=== PATIENT | female | born 1960 | race Caucasian/White ===

== ENCOUNTER 2021-03-28 14:04 | Observation (INO) | payer BC ==
[2021-03-28] MEDS ORDERED: Sodium Chloride 0.9% 1000 ML 1,000 ML IV SCH (14:30)
--- NOTE | 2021-03-28 14:37 | ERPHSYRPT ---
- History of Present Illness Time Seen by Provider: 03/28/21 14:10 Historian: patient Exam Limitations: no limitations Patient Subjective Stated Complaint: Pt states "I felt a little bloated last night but after I ate breakfast I started to vomit and my stomach really started to hurt." Triage Nursing Assessment: Pt presented alert and oriented X 3, skin pwd. Pt able to speak in clear full sentences pt in no apparent respiratory distress. PT resting on the bed. Physician History: Patient is a 60-year-old female presents to our ED via EMS for evaluation of epigastric pain. Symptoms started last night. Patient states she felt bloated. Patient awoke this morning had breakfast and vomited. Patient's pain rated 8 o ut of 10. Patient received Zofran and fentanyl in route. Patient's pain improved to 4 out of 10. Patient declined additional pain medication at this time. Patient has a history of reflux. Her gallbladder still intact. Symptoms are mild to moderate in intensity. No specific worsening improving factors. Patient denies a history of the same. Patient states he is otherwise healthy. History of breast cancer and is now a survivor. Patient voices no other complaints concerns at this time. Timing/Duration: yesterday Activities at Onset: none Quality: aching Abdominal Pain Onset Location: epigastric Pain Radiation: no radiation Severity of Pain-Max: moderate Severity of Pain-Current: mild Modifying Factors: Improves With: palpation Associated Symptoms: nausea, vomiting, No chest pain, No fever/chills, No heartburn Previous symptoms: no prior history Allergies/Adverse Reactions: clarithromycin [From Biaxin] Allergy (Intermediate, Verified 03/28/21 14:15) rash and joint pain Home Medications: Apremilast [Otezla] 30 mg PO DAILY 03/28/21 [History] Citalopram Hydrobromide [Citalopram HBr] 10 mg PO DAILY 03/28/21 [History] Omeprazole 40 mg PO DAILY 03/28/21 [History] Pravastatin Sodium 80 mg PO DAILY 03/28/21 [History] Trazodone HCl 50 mg [Desyrel 50 mg] 50 mg PO DAILY 03/28/21 [History] Hx Tetanus, Diphtheria Vaccination/Date Given: No Hx Influenza Vaccination/Date Given: Yes Hx Pneumococcal Vaccination/Date Given: No Immunizations Up to Date: Yes Travel Risk - International Travel Have you traveled outside of the country in past 3 weeks: No - Coronavirus Screening Are you exhibiting any of the following symptoms?: No Close contact with a COVID-19 positive Pt in past 14-21 Days: No - Vaccine Status Have you recieved a Covid-19 vaccination: Yes Facility Environmental Technician: Pfizer - Vaccination Dates Date of 2cond Vaccination (if applicable): 05/2020 - Review of Systems Constitutional: No Symptoms, No Fever, No Chills Eyes: No Symptoms Ears, Nose, & Throat: No Symptoms Respiratory: No Symptoms, No Cough, No Dyspnea Cardiac: No Symptoms, No Chest Pain, No Edema, No Syncope Abdominal/Gastrointestinal: No Symptoms, No Abdominal Pain, No Nausea, No Vomiting, No Diarrhea Genitourinary Symptoms: No Symptoms, No Dysuria Musculoskeletal: No Symptoms, No Back Pain, No Neck Pain Skin: No Symptoms, No Rash Neurological: No Symptoms, No Dizziness, No Focal Weakness, No Sensory Changes Psychological: No Symptoms Endocrine: No Symptoms Hematologic/Lymphatic: No Symptoms Immunological/Allergic: No Symptoms All Other Systems: Reviewed and Negative - Past Medical History Pertinent Past Medical History: Yes Neurological History: No Pertinent History, Epilepsy Cardiac History: High Cholesterol Respiratory History: No Pertinent History Endocrine Medical History: No Pertinent History Musculoskeletal History: Arthritis GI Medical History: GERD History: No Pertinent History Psycho-Social History: Anxiety, Depression Female Reproductive Disorders: No Pertinent History - Past Surgical History Past Surgical History: Yes Other Surgical History: massectomy right side - Social History Smoking Status: Former smoker Exposure to second hand smoke: Yes Drug Use: none Patient Lives Alone: Yes - Female History Hx Now: No - Nursing Vital Signs Nursing Vital Signs: Initial Vital Signs Temperature 97.4 F 03/28/21 14:06 Pulse Rate 58 L 03/28/21 14:06 Respiratory Rate 20 03/28/21 14:06 Blood Pressure 159/92 03/28/21 14:06 O2 Sat by Pulse Oximetry 98 03/28/21 14:06 Pain Scale Pain Intensity 4 - Physical Exam General Appearance: no apparent distress, alert Eye Exam: PERRL/EOMI, eyes nml inspection Ears, Nose, Throat Exam: normal ENT inspection, pharynx normal, moist mucous membranes Neck Exam: normal inspection, non-tender, supple, full range of motion Respiratory Exam: normal breath sounds, lungs clear, airway intact, No respiratory distress Cardiovascular Exam: regular rate/rhythm, normal heart sounds, normal peripheral pulses Gastrointestinal/Abdomen Exam: soft, normal bowel sounds, tenderness (Epigastric tenderness to palpation.), No mass, No guarding Pelvic Exam: not done Rectal Exam: not done Back Exam: normal inspection, normal range of motion, No CVA tenderness, No vertebral tenderness Extremity Exam: normal inspection, normal range of motion, pelvis stable Neurologic Exam: alert, oriented x 3, cooperative, normal mood/affect, sensation nml, No motor deficits Skin Exam: normal color, warm, dry Lymphatic Exam: No adenopathy SpO2 Interpretation: normal SpO2: 98 O2 Delivery: Room Air - Course Nursing assessment & vital signs reviewed: Yes EKG Interpreted by Me: RATE (64), Sinus Rhythm, NORMAL AXIS, NORMAL INTERVALS Ordered Tests: Active Orders 24 hr Category Date Time Status EKG-ER Only STAT Care 03/28/21 14:26 Active IV Insertion STAT Care 03/28/21 14:26 Active ABDOMEN AND PELVIS W CONTRAST [CT] Stat Exams 03/28/21 14:26 Completed NG TUBE PLACEMENT (RAD) Stat Exams 03/28/21 Taken CBC W DIFF Stat Lab 03/28/21 15:00 Completed CMP Stat Lab 03/28/21 15:00 Completed LIPASE Stat Lab 03/28/21 15:00 Completed Lactic Acid Stat Lab 03/28/21 17:00 Completed UA W/RFX UR CULTURE Stat Lab 03/28/21 15:15 Completed Transfer Order Routine Transfer 03/28/21 Ordered Medication Summary Generic Name Dose Route Start Last Admin Trade Name Freq PRN Reason Stop Dose Admin Sodium Chloride 1,000 mls @ 100 mls/hr 03/28/21 14:30 03/28/21 14:58 Sodium Chloride 0.9% 1000 Ml IV 04/27/21 14:29 100 mls/hr .Q10H NIKKI Administration Discontinued Medications Generic Name Dose Route Start Last Admin Trade Name Freq PRN Reason Stop Dose Admin Fentanyl Citrate 100 mcg 03/28/21 14:55 03/28/21 14:58 Fentanyl Citrate 100 Mcg/2 Ml* Vial IV 03/28/21 14:56 100 mcg STAT ONE Administration Fentanyl Citrate Confirm 03/28/21 14:57 Fentanyl Citrate 100 Mcg/2 Ml* Vial Administered 03/28/21 14:58 Dose 100 mcg .ROUTE .STK-MED ONE Piperacillin Sod/Tazobactam 100 mls @ 200 mls/hr 03/28/21 16:48 Sod 3.375 gm/ Sodium Chloride IV 03/28/21 17:17 STAT ONE Sodium Chloride Confirm 03/28/21 18:12 Sodium Chloride 100ml Mini-Bag Plus Administered 03/28/21 18:13 Dose 100 mls @ ud IV .STK-MED ONE Ondansetron HCl 4 mg 03/28/21 14:55 03/28/21 14:58 Ondansetron Hcl 4 Mg/2 Ml Vial IV 03/28/21 14:56 4 mg STAT ONE Administration Ondansetron HCl Confirm 03/28/21 14:57 Ondansetron Hcl 4 Mg/2 Ml Vial Administered 03/28/21 14:58 Dose 4 mg .ROUTE .STK-MED ONE Piperacillin Sod/Tazobactam Sod Confirm 03/28/21 18:12 Piperacillin/Tazobactam Sodium 3.375 Gm Vial Administered 03/28/21 18:13 Dose 3.375 gm IV .STK-MED ONE Lab/Rad Data: Laboratory Result Diagrams 03/28/21 15:00 03/28/21 15:00 Laboratory Results 03/28/21 03/28/21 03/28/21 Range/Units 17:00 16:52 15:15 WBC (4.0-10.5) K/mm3 RBC (4.1-5.4) M/mm3 Hgb (12.0-16.0) gm/dl Hct (35-47) % MCV (78-100) fl MCH (26-32) pg MCHC (32-36) g/dl RDW (11.5-14.0) % Plt Count (150-450) K/mm3 MPV (7.5-11.0) fl Gran % (36.0-66.0) % Eos # (Auto) (0-0.5) Absolute Lymphs (auto) (1.0-4.6) Absolute Monos (auto) (0.0-1.3) Lymphocytes % (24.0-44.0) % Monocytes % (0.0-12.0) % Eosinophils % (0.00-5.0) % Basophils % (0.0-0.4) % Absolute Granulocytes (1.4-6.9) Basophils # (0-0.4) Sodium (137-145) mmol/L Potassium (3.5-5.1) mmol/L Chloride (98-107) mmol/L Carbon Dioxide (22-30) mmol/L Anion Gap (5-15) MEQ/L BUN (7-17) mg/dL Creatinine (0.52-1.04) mg/dL Estimated GFR ML/MIN Glucose (74-106) mg/dL Lactic Acid 0.9 (0.4-2.0) Calcium (8.4-10.2) mg/dL Total Bilirubin (0.2-1.3) mg/dL AST (14-36) U/L ALT (0-35) U/L Alkaline Phosphatase (38-126) U/L Serum Total Protein (6.3-8.2) g/dL Albumin (3.5-5.0) g/dL Lipase (23-300) U/L Urine Color YELLOW (YELLOW) Urine Appearance SLIGHTLY CLOUDY (CLEAR) Urine pH 9.0 (5-6) Ur Specific [place] 1.033 (1.005-1.025) Urine Protein 30 (Negative) Urine Ketones SMALL (NEGATIVE) Urine Blood NEGATIVE (0-5) Shyam/ul Urine Nitrite NEGATIVE (NEGATIVE) Urine Bilirubin NEGATIVE (NEGATIVE) Urine Urobilinogen NEGATIVE (0-1) mg/dL Ur Leukocyte Esterase NEGATIVE (NEGATIVE) Urine WBC (Auto) 3-5 (0-5) /HPF Urine RBC (Auto) 6-10 (0-2) /HPF U Epithel Cells (Auto) RARE (FEW) /HPF Urine Bacteria (Auto) RARE (NEGATIVE) /HPF Urine Culture Reflexed NO (NO) Urine Glucose NEGATIVE (NEGATIVE) mg/dL Influenza Type A Ag NEGATIVE (NEGATIVE) Influenza Type B Ag NEGATIVE (NEGATIVE) RSV (PCR) NEGATIVE (Negative) SARS-CoV-2 (PCR) NEGATIVE (NEGATIVE) 03/28/21 03/28/21 Range/Units 15:00 15:00 WBC 11.1 H (4.0-10.5) K/mm3 RBC 4.21 (4.1-5.4) M/mm3 Hgb 11.8 L (12.0-16.0) gm/dl Hct 36.5 (35-47) % MCV 86.7 (78-100) fl MCH 28.0 (26-32) pg MCHC 32.3 (32-36) g/dl RDW 12.8 (11.5-14.0) % Plt Count 218 (150-450) K/mm3 MPV 9.4 (7.5-11.0) fl Gran % 86.8 H (36.0-66.0) % Eos # (Auto) 0.01 (0-0.5) Absolute Lymphs (auto) 0.85 L (1.0-4.6) Absolute Monos (auto) 0.58 (0.0-1.3) Lymphocytes % 7.7 L (24.0-44.0) % Monocytes % 5.2 (0.0-12.0) % Eosinophils % 0.1 (0.00-5.0) % Basophils % 0.2 (0.0-0.4) % Absolute Granulocytes 9.61 H (1.4-6.9) Basophils # 0.02 (0-0.4) Sodium 139 (137-145) mmol/L Potassium 3.5 (3.5-5.1) mmol/L Chloride 105 (98-107) mmol/L Carbon Dioxide 23 (22-30) mmol/L Anion Gap 13.8 (5-15) MEQ/L BUN 15 (7-17) mg/dL Creatinine 0.82 (0.52-1.04) mg/dL Estimated GFR > 60.0 ML/MIN Glucose 160 H (74-106) mg/dL Lactic Acid (0.4-2.0) Calcium 9.2 (8.4-10.2) mg/dL Total Bilirubin 0.70 (0.2-1.3) mg/dL AST 26 (14-36) U/L ALT 18 (0-35) U/L Alkaline Phosphatase 69 (38-126) U/L Serum Total Protein 7.3 (6.3-8.2) g/dL Albumin 4.1 (3.5-5.0) g/dL Lipase 73 (23-300) U/L Urine Color (YELLOW) Urine Appearance (CLEAR) Urine pH (5-6) Ur Specific [place] (1.005-1.025) Urine Protein (Negative) Urine Ketones (NEGATIVE) Urine Blood (0-5) Shyam/ul Urine Nitrite (NEGATIVE) Urine Bilirubin (NEGATIVE) Urine Urobilinogen (0-1) mg/dL Ur Leukocyte Esterase (NEGATIVE) Urine WBC (Auto) (0-5) /HPF Urine RBC (Auto) (0-2) /HPF U Epithel Cells (Auto) (FEW) /HPF Urine Bacteria (Auto) (NEGATIVE) /HPF Urine Culture Reflexed (NO) Urine Glucose (NEGATIVE) mg/dL Influenza Type A Ag (NEGATIVE) Influenza Type B Ag (NEGATIVE) RSV (PCR) (Negative) SARS-CoV-2 (PCR) (NEGATIVE) - Progress Progress: improved Progress Note: 03/28/21 16:35 Patient's work-up reveals an enteritis with a partial small bowel obstruction. We will continue IV fluids. N.p.o. for now. We will contact Dr. Love obtain a Covid test. Patient agrees to admission at [facility] for further evaluation and treatment. 03/28/21 17:02 Case discussed with who accepts admission to observation. Case discussed with of general surgery per primary's request. Our general surgeon request a lactic acid, antibiotics and an NG tube placed Covid test pending Patient is Covid negative. Patient will be admitted to 's service. Portions of this note were created with voice recognition technology. There may be grammatical, spelling, punctuation or sound alike errors 03/28/21 18:14 Discussed with .: Hazel Will see patient in: hospital (observation) Counseled pt/family regarding: lab results, diagnosis, rad results - Departure Departure Disposition: Observation Clinical Impression: Enteritis, Partial small bowel obstruction, Arthritis of spine, Hiatal hernia Condition: Stable Critical Care Time: No Referrals: JONO LOVE MD [Primary Care Provider] - Follow up/PCP as directed
[2021-03-28] MEDS ORDERED: Zofran 4 MG/2 ML VIAL IV ONE (14:55)
[2021-03-28] MEDS ORDERED: SUBLIMAZE 100 MCG/2 ML IV ONE (14:55)
[2021-03-28] MEDS ORDERED: Sodium Chloride 0.9% 1000 ML 1,000 ML ONE (14:57)
[2021-03-28] MEDS ORDERED: SUBLIMAZE 100 MCG/2 ML ONE (14:57)
[2021-03-28] MEDS ORDERED: Zofran 4 MG/2 ML VIAL ONE (14:57)
[2021-03-28 15:26] LABS: Absolute Neutrophil Ct (ANC) 9.61 (1.4-6.9); Basophil (Absolute #) 0.02 (0-0.4); Eosinophil % 0.1 % (0.00-5.0); Eosinophil (Absolute #) 0.01 (0-0.5); Hematocrit 36.5 % (35-47); Hemoglobin 11.8 gm/dl (12.0-16.0); Lymphocyte (Absolute #) 0.85 (1.0-4.6); Lymphocytes % 7.7 % (24.0-44.0); Mean Cell Volume 86.7 fl (78-100); Mean Corpuscular Hgb Concent. 32.3 g/dl (32-36); Mean Platelet Volume 9.4 fl (7.5-11.0); Monocyte (Absolute #) 0.58 (0.0-1.3); Monocytes % 5.2 % (0.0-12.0); Neutrophil % 86.8 % (36.0-66.0); Platelet Count 218 K/mm3 (150-450); Red Blood Count 4.21 M/mm3 (4.1-5.4); Red Cell Distribution Width 12.8 % (11.5-14.0); White Blood Count 11.1 K/mm3 (4.0-10.5)
[2021-03-28 15:35] LABS: ALBUMIN 4.1 g/dL (3.5-5.0); ALKALINE PHOSPHATASE 69 U/L (38-126); ANION GAP 13.8 MEQ/L (5-15); BLOOD UREA NITROGEN 15 mg/dL (7-17); CHLORIDE 105 mmol/L (98-107); Calcium 9.2 mg/dL (8.4-10.2); Carbon Dioxide 23 mmol/L (22-30); Creatinine 1 0.82 mg/dL (0.52-1.04); EST GLOMERULAR FILTRATION RATE > 60.0 ML/MIN; Glucose 160 mg/dL (74-106); LIPASE 73 U/L (23-300); Potassium 3.5 mmol/L (3.5-5.1); SGOT/AST 26 U/L (14-36); SGPT/ALT 18 U/L (0-35); SODIUM 139 mmol/L (137-145); Total Protein 7.3 g/dL (6.3-8.2)
--- NOTE | 2021-03-28 15:58 | XRAY ---
Indication: Epigastric pain. Nausea, vomiting, dizziness, and lightheadedness. Multiple contiguous axial images obtained through the abdomen and pelvis using 80 cc Isovue 370 contrast. Comparison: None Lung bases demonstrates bilateral peripheral subsegmental atelectasis/scarring. No infiltrate or effusion. Heart is enlarged. Small hiatal hernia. Noncontrasted stomach and bowel loops appear nonobstructed. Jejunum demonstrates mild uniformly fluid distended bowel loops up to 3.2 cm diameter with fluid leveling and circumferential bowel wall thickening/stranding favoring enteritis. Ileal bowel loops are more normal in caliber and therefore partial small bowel obstruction not completely excluded. Tiny pelvic free fluid presumed reactive. No walled off fluid collection or free air. Normal appendix. Remaining liver, gallbladder, pancreas, spleen, adrenal glands, kidneys, ureters, bladder, and uterus appear unremarkable. Mild scattered aortoiliac calcifications. No AAA or pathologic retroperitoneal lymphadenopathy. Osseous structures intact with mild degenerative changes throughout the thoracolumbar spine. Impression: 1. Mild fluid distended jejunum with bowel wall thickening/stranding and fluid leveling favoring enteritis. Partial small bowel obstruction not completely excluded. 2. Incidental small hiatal hernia and multilevel degenerative spondylosis.
[2021-03-28 16:31] LABS: Appearance SLIGHTLY CLOUDY (CLEAR); Bacteria RARE /HPF (NEGATIVE); Bilirubin NEGATIVE (NEGATIVE); Blood NEGATIVE Ery/ul (0-5); Epithelial Cells RARE /HPF (FEW); Glucose NEGATIVE (NEGATIVE); Ketones SMALL (NEGATIVE); Leukocyte Esterase NEGATIVE (NEGATIVE); Nitrite NEGATIVE (NEGATIVE); Protein,Urine Dip 30 (Negative); Specific Gravity 1.033 (1.005-1.025); Urobilinogen NEGATIVE mg/dL (0-1)
[2021-03-28] MEDS ORDERED: Zosyn 3.375 GM Vial 3.375 GM in Sodium Chloride 100ML MINI-BAG PLUS 100 ML IV ONE (16:48)
[2021-03-28 17:36] LABS: INFLUENZA A NEGATIVE (NEGATIVE); INFLUENZA B NEGATIVE (NEGATIVE); RESPIRATORY SYNCTIAL VIRUS NEGATIVE (Negative); SARS-CoV-2 Xpert Express NEGATIVE (NEGATIVE)
[2021-03-28] MEDS ORDERED: Zosyn 3.375 GM Vial IV ONE ×2 (18:12→23:06)
[2021-03-28] MEDS ORDERED: Sodium Chloride 100ML MINI-BAG PLUS 100 ML IV ONE ×2 (18:12→23:07)
[2021-03-28] MEDS ORDERED: Zofran 4 MG/2 ML VIAL IV PRN (18:30)
[2021-03-28] MEDS: Zosyn 3.375 GM Vial 3.375 GM in Sodium Chloride 100ML MINI-BAG PLUS 100 ML IV SCH (23:36)
[2021-03-28] MEDS: Sodium Chloride 0.9% 1000 ML 1,000 ML IV SCH (23:36)
[2021-03-29] MEDS: MORPHINE SULFATE 2 MG INJ IV PRN ×2 (01:22→05:28)
[2021-03-29 05:13] LABS: Absolute Neutrophil Ct (ANC) 5.53 (1.4-6.9); Basophil (Absolute #) 0.02 (0-0.4); Eosinophil % 0.6 % (0.00-5.0); Eosinophil (Absolute #) 0.05 (0-0.5); Hematocrit 34.9 % (35-47); Lymphocyte (Absolute #) 2.21 (1.0-4.6); Lymphocytes % 25.6 % (24.0-44.0); Mean Corpuscular Hemoglobin 28.1 pg (26-32); Mean Corpuscular Hgb Concent. 31.5 g/dl (32-36); Mean Platelet Volume 9.5 fl (7.5-11.0); Monocyte (Absolute #) 0.81 (0.0-1.3); Monocytes % 9.4 % (0.0-12.0); Neutrophil % 64.2 % (36.0-66.0); Platelet Count 205 K/mm3 (150-450); Red Blood Count 3.92 M/mm3 (4.1-5.4); Red Cell Distribution Width 13.3 % (11.5-14.0); White Blood Count 8.6 K/mm3 (4.0-10.5)
[2021-03-29] MEDS ORDERED: Zosyn 3.375 GM Vial IV ONE (05:17)
[2021-03-29] MEDS ORDERED: Sodium Chloride 100ML MINI-BAG PLUS 100 ML IV ONE (05:17)
[2021-03-29] MEDS: Zosyn 3.375 GM Vial 3.375 GM in Sodium Chloride 100ML MINI-BAG PLUS 100 ML IV SCH ×4 (05:28→23:51)
[2021-03-29 06:16] LABS: ALBUMIN 3.7 g/dL (3.5-5.0); ALKALINE PHOSPHATASE 57 U/L (38-126); ANION GAP 10.7 MEQ/L (5-15); BLOOD UREA NITROGEN 13 mg/dL (7-17); CHLORIDE 109 mmol/L (98-107); Calcium 8.6 mg/dL (8.4-10.2); Carbon Dioxide 25 mmol/L (22-30); Creatinine 1 0.88 mg/dL (0.52-1.04); EST GLOMERULAR FILTRATION RATE > 60.0 ML/MIN; Glucose 95 mg/dL (74-106); Potassium 3.5 mmol/L (3.5-5.1); SGOT/AST 25 U/L (14-36); SGPT/ALT 15 U/L (0-35); SODIUM 141 mmol/L (137-145); Total Protein 6.9 g/dL (6.3-8.2)
--- NOTE | 2021-03-29 08:05 | XRAY ---
Indication: NG tube placement. Comparison: None Portable chest including upper abdomen demonstrates NG tube tip in stomach. Lungs are clear. Heart not enlarged. Bony thorax intact with mild degenerative changes.
--- NOTE | 2021-03-29 09:10 | PCM.HP ---
History of Present Illness - Chief Complaint Chief Complaint: GASTROENTERITIS, SMALL BOWEL OBSTRUCTION History of Present Illness: is a 60 year old female presents to our ED via EMS for evaluation of epigastric pain. Symptoms started last night. Patient states she felt bloated. Patient awoke this morning had breakfast and vomited. Patient's pain rated 8 out of 10. Patient received Zofran and fentanyl in route. Patient's pain improved to 4 out of 10. Patient declined additional pain medication at this time. Patient has a history of reflux. Her gallbladder still intact. Symptoms are mild to moderate in intensity. No specific worsening improving factors. Patient denies a history of the same. Patient states he is otherwise healthy. History of breast cancer and is now a survivor. Patient voices no other complaints concerns at this time.. - Review of Systems Constitutional: No Fever, No Chills Eyes: No Symptoms Ears, Nose, & Throat: No Symptoms Respiratory: No Cough, No Short Of Breath Cardiac: No Chest Pain, No Edema, No Syncope Abdominal/Gastrointestinal: Abdominal Pain, Nausea, Vomiting, Diarrhea, Appetite Changes Genitourinary Symptoms: No Dysuria Musculoskeletal: No Back Pain, No Neck Pain Skin: No Rash Neurological: No Dizziness, No Focal Weakness, No Sensory Changes Psychological: No Symptoms Endocrine: No Symptoms Hematologic/Lymphatic: No Symptoms Immunological/Allergic: No Symptoms Medications & Allergies Home Medications: Home Medication List Apremilast [Otezla] 30 mg PO BID 03/28/21 [History Confirmed 03/28/21] Cholecalciferol (Vitamin D3) [Vitamin D3] 50 mcg PO DAILY 03/28/21 [History Confirmed 03/28/21] Citalopram Hydrobromide [Citalopram HBr] 10 mg PO DAILY 03/28/21 [History Confirmed 03/28/21] Omeprazole 40 mg PO DAILY 03/28/21 [History Confirmed 03/28/21] Pravastatin Sodium 80 mg PO DAILY 03/28/21 [History Confirmed 03/28/21] Trazodone HCl 50 mg [Desyrel 50 mg] 50 mg PO HS 03/28/21 [History Confirmed 03/28/21] Allergies/Adverse Reactions: Allergies Allergy/AdvReac Type Severity Reaction Status Date / Time clarithromycin [From Biaxin] Allergy Intermediate rash and Verified 03/28/21 14:15 joint pain - Past Medical History Past Medical History: Yes Neurological History: No Pertinent History ENT History: No Pertinent History Cardiac History: High Cholesterol Respiratory History: No Pertinent History Endocrine Medical History: No Pertinent History Musculoskelatal History: Arthritis GI Medical History: GERD History: No Pertinent History Pyscho-Social History: Anxiety, Depression Reproductive Disorders: No Pertinent History - Female History Are you now?: No - Past Surgical History Past Surgical History: Yes Other Surgical History: massectomy right side, right breast augmentation - Social History Smoking Status: Former smoker Exposure to second hand smoke: No Alcohol: Occasionally Drug Use: none - Physical Exam Vital Signs: Vital Signs - 24 hr Temp Pulse Resp BP BP Pulse Ox 03/29/21 08:00 98.4 F 67 16 121/67 90 L 03/29/21 04:00 98.0 F 75 20 139/75 95 03/28/21 23:55 98.0 F 65 23 139/83 96 03/28/21 19:29 96.7 F 65 24 130/75 96 03/28/21 18:37 96.3 F 65 20 148/74 96 03/28/21 18:30 96 03/28/21 18:15 98 03/28/21 18:01 97.8 F 74 20 143/79 98 03/28/21 16:13 75 18 140/79 99 03/28/21 15:15 97.6 F 60 20 154/88 98 03/28/21 14:06 97.4 F 58 L 20 159/92 98 General Appearance: no apparent distress, alert Neurologic Exam: alert, oriented x 3, cooperative, normal mood/affect, nml cerebellar function, nml station & gait, sensation nml, No motor deficits Eye Exam: PERRL/EOMI, eyes nml inspection Ears, Nose, Throat Exam: normal ENT inspection, TMs normal, pharynx normal, moist mucous membranes Neck Exam: normal inspection, non-tender, supple, full range of motion Respiratory Exam: normal breath sounds, lungs clear, No respiratory distress Cardiovascular Exam: regular rate/rhythm, normal heart sounds, normal peripheral pulses Gastrointestinal/Abdomen Exam: soft, tenderness, distention, guarding, No mass, No rebound Back Exam: normal inspection, normal range of motion, No CVA tenderness, No vertebral tenderness Extremity Exam: normal inspection, normal range of motion, pelvis stable Skin Exam: normal color, warm, dry, No rash Lymphatic Exam: No adenopathy Results - Labs Lab/Micro Results: Lab Results-Last 24 Hours 03/28/21 03/28/21 03/28/21 Range/Units 15:00 15:00 15:15 WBC 11.1 H (4.0-10.5) K/mm3 RBC 4.21 (4.1-5.4) M/mm3 Hgb 11.8 L (12.0-16.0) gm/dl Hct 36.5 (35-47) % MCV 86.7 (78-100) fl MCH 28.0 (26-32) pg MCHC 32.3 (32-36) g/dl RDW 12.8 (11.5-14.0) % Plt Count 218 (150-450) K/mm3 MPV 9.4 (7.5-11.0) fl Gran % 86.8 H (36.0-66.0) % Eos # (Auto) 0.01 (0-0.5) Absolute Lymphs (auto) 0.85 L (1.0-4.6) Absolute Monos (auto) 0.58 (0.0-1.3) Lymphocytes % 7.7 L (24.0-44.0) % Monocytes % 5.2 (0.0-12.0) % Eosinophils % 0.1 (0.00-5.0) % Basophils % 0.2 (0.0-0.4) % Absolute Granulocytes 9.61 H (1.4-6.9) Basophils # 0.02 (0-0.4) Sodium 139 (137-145) mmol/L Potassium 3.5 (3.5-5.1) mmol/L Chloride 105 (98-107) mmol/L Carbon Dioxide 23 (22-30) mmol/L Anion Gap 13.8 (5-15) MEQ/L BUN 15 (7-17) mg/dL Creatinine 0.82 (0.52-1.04) mg/dL Estimated GFR > 60.0 ML/MIN Glucose 160 H (74-106) mg/dL Lactic Acid (0.4-2.0) Calcium 9.2 (8.4-10.2) mg/dL Total Bilirubin 0.70 (0.2-1.3) mg/dL AST 26 (14-36) U/L ALT 18 (0-35) U/L Alkaline Phosphatase 69 (38-126) U/L Serum Total Protein 7.3 (6.3-8.2) g/dL Albumin 4.1 (3.5-5.0) g/dL Lipase 73 (23-300) U/L Urine Color YELLOW (YELLOW) Urine Appearance SLIGHTLY CLOUDY (CLEAR) Urine pH 9.0 (5-6) Ur Specific Odem 1.033 (1.005-1.025) Urine Protein 30 (Negative) Urine Ketones SMALL (NEGATIVE) Urine Blood NEGATIVE (0-5) Shyam/ul Urine Nitrite NEGATIVE (NEGATIVE) Urine Bilirubin NEGATIVE (NEGATIVE) Urine Urobilinogen NEGATIVE (0-1) mg/dL Ur Leukocyte Esterase NEGATIVE (NEGATIVE) Urine WBC (Auto) 3-5 (0-5) /HPF Urine RBC (Auto) 6-10 (0-2) /HPF U Epithel Cells (Auto) RARE (FEW) /HPF Urine Bacteria (Auto) RARE (NEGATIVE) /HPF Urine Culture Reflexed NO (NO) Urine Glucose NEGATIVE (NEGATIVE) mg/dL Influenza Type A Ag (NEGATIVE) Influenza Type B Ag (NEGATIVE) RSV (PCR) (Negative) SARS-CoV-2 (PCR) (NEGATIVE) 03/28/21 03/28/21 03/29/21 Range/Units 16:52 17:00 04:50 WBC 8.6 (4.0-10.5) K/mm3 RBC 3.92 L (4.1-5.4) M/mm3 Hgb 11.0 L (12.0-16.0) gm/dl Hct 34.9 L (35-47) % MCV 89.0 (78-100) fl MCH 28.1 (26-32) pg MCHC 31.5 L (32-36) g/dl RDW 13.3 (11.5-14.0) % Plt Count 205 (150-450) K/mm3 MPV 9.5 (7.5-11.0) fl Gran % 64.2 (36.0-66.0) % Eos # (Auto) 0.05 (0-0.5) Absolute Lymphs (auto) 2.21 (1.0-4.6) Absolute Monos (auto) 0.81 (0.0-1.3) Lymphocytes % 25.6 (24.0-44.0) % Monocytes % 9.4 (0.0-12.0) % Eosinophils % 0.6 (0.00-5.0) % Basophils % 0.2 (0.0-0.4) % Absolute Granulocytes 5.53 (1.4-6.9) Basophils # 0.02 (0-0.4) Sodium (137-145) mmol/L Potassium (3.5-5.1) mmol/L Chloride (98-107) mmol/L Carbon Dioxide (22-30) mmol/L Anion Gap (5-15) MEQ/L BUN (7-17) mg/dL Creatinine (0.52-1.04) mg/dL Estimated GFR ML/MIN Glucose (74-106) mg/dL Lactic Acid 0.9 (0.4-2.0) Calcium (8.4-10.2) mg/dL Total Bilirubin (0.2-1.3) mg/dL AST (14-36) U/L ALT (0-35) U/L Alkaline Phosphatase (38-126) U/L Serum Total Protein (6.3-8.2) g/dL Albumin (3.5-5.0) g/dL Lipase (23-300) U/L Urine Color (YELLOW) Urine Appearance (CLEAR) Urine pH (5-6) Ur Specific Odem (1.005-1.025) Urine Protein (Negative) Urine Ketones (NEGATIVE) Urine Blood (0-5) Shyam/ul Urine Nitrite (NEGATIVE) Urine Bilirubin (NEGATIVE) Urine Urobilinogen (0-1) mg/dL Ur Leukocyte Esterase (NEGATIVE) Urine WBC (Auto) (0-5) /HPF Urine RBC (Auto) (0-2) /HPF U Epithel Cells (Auto) (FEW) /HPF Urine Bacteria (Auto) (NEGATIVE) /HPF Urine Culture Reflexed (NO) Urine Glucose (NEGATIVE) mg/dL Influenza Type A Ag NEGATIVE (NEGATIVE) Influenza Type B Ag NEGATIVE (NEGATIVE) RSV (PCR) NEGATIVE (Negative) SARS-CoV-2 (PCR) NEGATIVE (NEGATIVE) 03/29/21 Range/Units 04:50 WBC (4.0-10.5) K/mm3 RBC (4.1-5.4) M/mm3 Hgb (12.0-16.0) gm/dl Hct (35-47) % MCV (78-100) fl MCH (26-32) pg MCHC (32-36) g/dl RDW (11.5-14.0) % Plt Count (150-450) K/mm3 MPV (7.5-11.0) fl Gran % (36.0-66.0) % Eos # (Auto) (0-0.5) Absolute Lymphs (auto) (1.0-4.6) Absolute Monos (auto) (0.0-1.3) Lymphocytes % (24.0-44.0) % Monocytes % (0.0-12.0) % Eosinophils % (0.00-5.0) % Basophils % (0.0-0.4) % Absolute Granulocytes (1.4-6.9) Basophils # (0-0.4) Sodium 141 (137-145) mmol/L Potassium 3.5 (3.5-5.1) mmol/L Chloride 109 H (98-107) mmol/L Carbon Dioxide 25 (22-30) mmol/L Anion Gap 10.7 (5-15) MEQ/L BUN 13 (7-17) mg/dL Creatinine 0.88 (0.52-1.04) mg/dL Estimated GFR > 60.0 ML/MIN Glucose 95 (74-106) mg/dL Lactic Acid (0.4-2.0) Calcium 8.6 (8.4-10.2) mg/dL Total Bilirubin 0.80 (0.2-1.3) mg/dL AST 25 (14-36) U/L ALT 15 (0-35) U/L Alkaline Phosphatase 57 (38-126) U/L Serum Total Protein 6.9 (6.3-8.2) g/dL Albumin 3.7 (3.5-5.0) g/dL Lipase (23-300) U/L Urine Color (YELLOW) Urine Appearance (CLEAR) Urine pH (5-6) Ur Specific Odem (1.005-1.025) Urine Protein (Negative) Urine Ketones (NEGATIVE) Urine Blood (0-5) Shyam/ul Urine Nitrite (NEGATIVE) Urine Bilirubin (NEGATIVE) Urine Urobilinogen (0-1) mg/dL Ur Leukocyte Esterase (NEGATIVE) Urine WBC (Auto) (0-5) /HPF Urine RBC (Auto) (0-2) /HPF U Epithel Cells (Auto) (FEW) /HPF Urine Bacteria (Auto) (NEGATIVE) /HPF Urine Culture Reflexed (NO) Urine Glucose (NEGATIVE) mg/dL Influenza Type A Ag (NEGATIVE) Influenza Type B Ag (NEGATIVE) RSV (PCR) (Negative) SARS-CoV-2 (PCR) (NEGATIVE) - Radiology Impressions Radiology Exams & Impressions: Radiology Procedures Category Date Time Status ABDOMEN AND PELVIS W CONTRAST [CT] Stat Exams 03/28/21 14:26 Completed KUB Stat Exams 03/28/21 00:[address]/ABDOMEN AND PELVIS W CONTRAST Indication: Epigastric pain. Nausea, vomiting, dizziness, and lightheadedness. Multiple contiguous axial images obtained through the abdomen and pelvis using 80 cc Isovue 370 contrast. Comparison: None Lung bases demonstrates bilateral peripheral subsegmental atelectasis/scarring. No infiltrate or effusion. Heart is enlarged. Small hiatal hernia. Noncontrasted stomach and bowel loops appear nonobstructed. Jejunum demonstrates mild uniformly fluid distended bowel loops up to 3.2 cm diameter with fluid leveling and circumferential bowel wall thickening/stranding favoring enteritis. Ileal bowel loops are more normal in caliber and therefore partial small bowel obstruction not completely excluded. Tiny pelvic free fluid presumed reactive. No walled off fluid collection or free air. Normal appendix. Remaining liver, gallbladder, pancreas, spleen, adrenal glands, kidneys, ureters, bladder, and uterus appear unremarkable. Mild scattered aortoiliac calcifications. No AAA or pathologic retroperitoneal lymphadenopathy. Osseous structures intact with mild degenerative changes throughout the thoracolumbar spine. Impression: 1. Mild fluid distended jejunum with bowel wall thickening/stranding and fluid leveling favoring enteritis. Partial small bowel obstruction not completely excluded. 2. Incidental small hiatal hernia and multilevel degenerative spondylosis Assessment/Plan (1) Enteritis Current Visit: Yes Status: Acute Assessment & Plan: Chief Complaint Diagnosis GASTROENTERITIS, SMALL BOWEL OBSTRUCTION Allergies Allergy/AdvReac Type Severity Reaction Status Date / Time clarithromycin [From Biaxin] Allergy Intermediate rash and Verified 03/28/21 14:15 joint pain Vital Signs (Last 24 hours) Temp Pulse Resp BP BP Pulse Ox 03/29/21 08:00 98.4 F 67 16 121/67 90 L 03/29/21 04:00 98.0 F 75 20 139/75 95 03/28/21 23:55 98.0 F 65 23 139/83 96 03/28/21 19:29 96.7 F 65 24 130/75 96 03/28/21 18:37 96.3 F 65 20 148/74 96 03/28/21 18:30 96 03/28/21 18:15 98 03/28/21 18:01 97.8 F 74 20 143/79 98 03/28/21 16:13 75 18 140/79 99 03/28/21 15:15 97.6 F 60 20 154/88 98 03/28/21 14:06 97.4 F 58 L 20 159/92 98 Home Medications Medication Instructions Recorded Confirmed Last Taken Type Apremilast [Otezla] 30 mg PO BID 03/28/21 03/28/21 Unknown History Cholecalciferol (Vitamin D3) 50 mcg PO DAILY 03/28/21 03/28/21 Unknown History [Vitamin D3] Citalopram Hydrobromide 10 mg PO DAILY 03/28/21 03/28/21 Unknown History [Citalopram HBr] Omeprazole 40 mg PO DAILY 03/28/21 03/28/21 Unknown History Pravastatin Sodium 80 mg PO DAILY 03/28/21 03/28/21 Unknown History Trazodone HCl 50 mg [Desyrel 50 50 mg PO HS 03/28/21 03/28/21 Unknown History mg] Current Medications Generic Name Dose Route Start Last Admin Trade Name Freq PRN Reason Stop Dose Admin Sodium Chloride 1,000 mls @ 100 mls/hr 03/28/21 18:30 03/28/21 23:36 Sodium Chloride 0.9% 1000 Ml IV 04/27/21 18:29 100 mls/hr .Q10H NIKKI Administration Piperacillin Sod/Tazobactam 100 mls @ 200 mls/hr 03/29/21 00:00 03/29/21 05:28 Sod 3.375 gm/ Sodium Chloride IV 04/01/21 00:00 200 mls/hr Q6HT NIKKI Administration Morphine Sulfate 2 mg 03/28/21 18:30 03/29/21 05:28 Morphine Sulfate 2 Mg/Ml Inj IV 04/02/21 18:29 2 mg Q4H PRN PRN Administration PAIN Ondansetron HCl 4 mg 03/28/21 18:30 Ondansetron Hcl 4 Mg/2 Ml Vial IV 04/27/21 18:29 Q6H PRN PRN NAUSEA/VOMITING Pantoprazole Sodium 40 mg 03/30/21 10:00 Pantoprazole 40 Mg Vial IV 04/29/21 09:59 Q24H10 NIKKI Discontinued Medications Generic Name Dose Route Start Last Admin Trade Name Freq PRN Reason Stop Dose Admin Fentanyl Citrate 100 mcg 03/28/21 14:55 03/28/21 14:58 Fentanyl Citrate 100 Mcg/2 Ml* Vial IV 03/28/21 14:56 100 mcg STAT ONE Administration Fentanyl Citrate Confirm 03/28/21 14:57 Fentanyl Citrate 100 Mcg/2 Ml* Vial Administered 03/28/21 14:58 Dose 100 mcg .ROUTE .STK-MED ONE Sodium Chloride 1,000 mls @ 100 mls/hr 03/28/21 14:30 03/28/21 14:58 Sodium Chloride 0.9% 1000 Ml IV 04/27/21 14:29 100 mls/hr .Q10H NIKKI Administration Piperacillin Sod/Tazobactam 100 mls @ 200 mls/hr 03/28/21 16:48 03/28/21 18:19 Sod 3.375 gm/ Sodium Chloride IV 03/28/21 17:17 200 mls/hr STAT ONE Administration Sodium Chloride Confirm 03/28/21 18:12 Sodium Chloride 100ml Mini-Bag Plus Administered 03/28/21 18:13 Dose 100 mls @ ud IV .STK-MED ONE Sodium Chloride Confirm 03/28/21 14:57 Sodium Chloride 0.9% 1000 Ml Administered 03/28/21 14:58 Dose 1,000 mls @ ud .ROUTE .STK-MED ONE Sodium Chloride Confirm 03/28/21 23:07 Sodium Chloride 100ml Mini-Bag Plus Administered 03/28/21 23:08 Dose 100 mls @ ud IV .STK-MED ONE Sodium Chloride Confirm 03/29/21 05:17 Sodium Chloride 100ml Mini-Bag Plus Administered 03/29/21 05:18 Dose 100 mls @ ud IV .STK-MED ONE Ondansetron HCl 4 mg 03/28/21 14:55 03/28/21 14:58 Ondansetron Hcl 4 Mg/2 Ml Vial IV 03/28/21 14:56 4 mg STAT ONE Administration Ondansetron HCl Confirm 03/28/21 14:57 Ondansetron Hcl 4 Mg/2 Ml Vial Administered 03/28/21 14:58 Dose 4 mg .ROUTE .STK-MED ONE Pantoprazole Sodium 40 mg 03/29/21 10:00 03/29/21 05:27 Pantoprazole 40 Mg Vial IV 04/28/21 09:59 40 mg Q24H10 NIKKI Administration Piperacillin Sod/Tazobactam Sod Confirm 03/28/21 18:12 Piperacillin/Tazobactam Sodium 3.375 Gm Vial Administered 03/28/21 18:13 Dose 3.375 gm IV .STK-MED ONE Piperacillin Sod/Tazobactam Sod Confirm 03/28/21 23:06 Piperacillin/Tazobactam Sodium 3.375 Gm Vial Administered 03/28/21 23:07 Dose 3.375 gm IV .STK-MED ONE Piperacillin Sod/Tazobactam Sod Confirm 03/29/21 05:17 Piperacillin/Tazobactam Sodium 3.375 Gm Vial Administered 03/29/21 05:18 Dose 3.375 gm IV .STK-MED ONE Intake & Output (Last 24 hours) 03/26/21 03/27/21 03/28/21 03/29/21 11:59 11:59 11:59 11:59 Intake Total 1404 Output Total 1000 Balance 404 Weight 78.4 kg Laboratory Results (Last 24 hours) 03/29/21 03/29/21 03/28/21 04:50 04:50 17:00 WBC 8.6 RBC 3.92 L Hgb 11.0 L Hct 34.9 L MCV 89.0 MCH 28.1 MCHC 31.5 L RDW 13.3 Plt Count 205 MPV 9.5 Gran % 64.2 Eos # (Auto) 0.05 Absolute Lymphs (auto) 2.21 Absolute Monos (auto) 0.81 Lymphocytes % 25.6 Monocytes % 9.4 Eosinophils % 0.6 Basophils % 0.2 Absolute Granulocytes 5.53 Basophils # 0.02 Sodium 141 Potassium 3.5 Chloride 109 H Carbon Dioxide 25 Anion Gap 10.7 BUN 13 Creatinine 0.88 Estimated GFR > 60.0 Glucose 95 Lactic Acid 0.9 Calcium 8.6 Total Bilirubin 0.80 AST 25 ALT 15 Alkaline Phosphatase 57 Serum Total Protein 6.9 Albumin 3.7 Lipase Urine Color Urine Appearance Urine pH Ur Specific Odem Urine Protein Urine Ketones Urine Blood Urine Nitrite Urine Bilirubin Urine Urobilinogen Ur Leukocyte Esterase Urine WBC (Auto) Urine RBC (Auto) U Epithel Cells (Auto) Urine Bacteria (Auto) Urine Culture Reflexed Urine Glucose Influenza Type A Ag Influenza Type B Ag RSV (PCR) SARS-CoV-2 (PCR) 03/28/21 03/28/21 03/28/21 16:52 15:15 15:00 WBC RBC Hgb Hct MCV MCH MCHC RDW Plt Count MPV Gran % Eos # (Auto) Absolute Lymphs (auto) Absolute Monos (auto) Lymphocytes % Monocytes % Eosinophils % Basophils % Absolute Granulocytes Basophils # Sodium 139 Potassium 3.5 Chloride 105 Carbon Dioxide 23 Anion Gap 13.8 BUN 15 Creatinine 0.82 Estimated GFR > 60.0 Glucose 160 H Lactic Acid Calcium 9.2 Total Bilirubin 0.70 AST 26 ALT 18 Alkaline Phosphatase 69 Serum Total Protein 7.3 Albumin 4.1 Lipase 73 Urine Color YELLOW Urine Appearance SLIGHTLY CLOUDY Urine pH 9.0 Ur Specific Odem 1.033 Urine Protein 30 Urine Ketones SMALL Urine Blood NEGATIVE Urine Nitrite NEGATIVE Urine Bilirubin NEGATIVE Urine Urobilinogen NEGATIVE Ur Leukocyte Esterase NEGATIVE Urine WBC (Auto) 3-5 Urine RBC (Auto) 6-10 U Epithel Cells (Auto) RARE Urine Bacteria (Auto) RARE Urine Culture Reflexed NO Urine Glucose NEGATIVE Influenza Type A Ag NEGATIVE Influenza Type B Ag NEGATIVE RSV (PCR) NEGATIVE SARS-CoV-2 (PCR) NEGATIVE 03/28/21 15:00 WBC 11.1 H RBC 4.21 Hgb 11.8 L Hct 36.5 MCV 86.7 MCH 28.0 MCHC 32.3 RDW 12.8 Plt Count 218 MPV 9.4 Gran % 86.8 H Eos # (Auto) 0.01 Absolute Lymphs (auto) 0.85 L Absolute Monos (auto) 0.58 Lymphocytes % 7.7 L Monocytes % 5.2 Eosinophils % 0.1 Basophils % 0.2 Absolute Granulocytes 9.61 H Basophils # 0.02 Sodium Potassium Chloride Carbon Dioxide Anion Gap BUN Creatinine Estimated GFR Glucose Lactic Acid Calcium Total Bilirubin AST ALT Alkaline Phosphatase Serum Total Protein Albumin Lipase Urine Color Urine Appearance Urine pH Ur Specific Odem Urine Protein Urine Ketones Urine Blood Urine Nitrite Urine Bilirubin Urine Urobilinogen Ur Leukocyte Esterase Urine WBC (Auto) Urine RBC (Auto) U Epithel Cells (Auto) Urine Bacteria (Auto) Urine Culture Reflexed Urine Glucose Influenza Type A Ag Influenza Type B Ag RSV (PCR) SARS-CoV-2 (PCR) Orders (Last 24 hours) Category Date Time Status Bedrest ROUTINE Activity 03/28/21 18:30 Active Code Status Order ROUTINE Care 03/28/21 18:30 Active EKG-ER Only STAT Care 03/28/21 14:26 Completed IV Care Q6H Care 03/28/21 18:30 Active IV Insertion STAT Care 03/28/21 14:26 Completed Neuro Checks Q4H Care 03/28/21 18:[address] in Observation ROUTINE Care 03/28/21 18:30 Active Consult Surgery ROUTINE Cons 03/28/21 18:30 Active NPO Diet 03/28/21 18:31 Active ABDOMEN AND PELVIS W CONTRAST [CT] Stat Exams 03/28/21 14:26 Completed CBC W DIFF AM.LAB Lab 03/29/21 04:50 Completed CBC W DIFF Stat Lab 03/28/21 15:00 Completed CMP AM.LAB Lab 03/29/21 04:50 Completed CMP Stat Lab 03/28/21 15:00 Completed LIPASE Stat Lab 03/28/21 15:00 Completed Lactic Acid Stat Lab 03/28/21 17:00 Completed UA W/RFX UR CULTURE Stat Lab 03/28/21 15:15 Completed Fentanyl Citrate 100 Mcg/2 ml* [Sublimaze 100 Mcg/2 ml* Med 03/28/21 14:57 Discontinued ] 100 mcg .ROUTE .STK-MED ONE Fentanyl Citrate 100 Mcg/2 ml* [Sublimaze 100 Mcg/2 ml* Med 03/28/21 14:55 Discontinued ] 100 mcg IV STAT ONE Morphine Sulfate 2 mg Inj Med 03/28/21 18:30 Active 2 mg IV Q4H PRN PRN NaCl 0.9% 100 ml Mini-Bag Plus [Sodium Chloride 100ML Med 03/28/21 18:12 Discontinued MINI-BAG PLUS] 100 ml IV UD NaCl 0.9% 100 ml Mini-Bag Plus [Sodium Chloride 100ML Med 03/28/21 23:07 Discontinued MINI-BAG PLUS] 100 ml IV UD NaCl 0.9% 100 ml Mini-Bag Plus [Sodium Chloride 100ML Med 03/29/21 05:17 Discontinued MINI-BAG PLUS] 100 ml IV UD NaCl 0.9% 1000 ml [Sodium Chloride 0.9% 1000 ML] 1,000 Med 03/28/21 14:57 Discontinued ml .ROUTE UD NaCl 0.9% 1000 ml [Sodium Chloride 0.9% 1000 ML] 1,000 Med 03/28/21 14:30 Discontinued ml IV 100 mls/hr NaCl 0.9% 1000 ml [Sodium Chloride 0.9% 1000 ML] 1,000 Med 03/28/21 18:30 Active ml IV 100 mls/hr Ondansetron HCl 4 mg/2 ml [Zofran 4 MG/2 ML VIAL] Med 03/28/21 14:57 Discontinued 4 mg .ROUTE .STK-MED ONE Ondansetron HCl 4 mg/2 ml [Zofran 4 MG/2 ML VIAL] Med 03/28/21 18:30 Active 4 mg IV Q6H PRN PRN Ondansetron HCl 4 mg/2 ml [Zofran 4 MG/2 ML VIAL] Med 03/28/21 14:55 Discontinued 4 mg IV STAT ONE Pantoprazole 40 mg [Protonix 40 mg IV] Med 03/29/21 10:00 Discontinued 40 mg IV Q24H10 Pantoprazole 40 mg [Protonix 40 mg IV] Med 03/30/21 10:00 Active 40 mg IV Q24H10 Piperacillin/Tazobactam 3.375G [Zosyn 3.375 GM Vial] Med 03/28/21 18:12 Discontinued 3.375 gm IV .STK-MED ONE Piperacillin/Tazobactam 3.375G [Zosyn 3.375 GM Vial] Med 03/28/21 23:06 Discontinued 3.375 gm IV .STK-MED ONE Piperacillin/Tazobactam 3.375G [Zosyn 3.375 GM Vial] Med 03/29/21 05:17 Discontinued 3.375 gm IV .STK-MED ONE Piperacillin/Tazobactam 3.375G [Zosyn 3.375 GM Vial] 3. Med 03/29/21 00:00 Active 375 gm NaCl 0.9% 100 ml Mini-Bag Plus [Sodium Chloride 100ML MINI-BAG PLUS] 100 ml IV Q6HT Piperacillin/Tazobactam 3.375G [Zosyn 3.375 GM Vial] 3. Med 03/28/21 16:48 Discontinued 375 gm NaCl 0.9% 100 ml Mini-Bag Plus [Sodium Chloride 100ML MINI-BAG PLUS] 100 ml IV STAT Code(s): K52.9 - NONINFECTIVE GASTROENTERITIS AND COLITIS, UNSPECIFIED (2) Partial small bowel obstruction Current Visit: Yes Status: Acute Code(s): K56.600 - PARTIAL INTESTINAL OBSTRUCTION, UNSPECIFIED TO CAUSE
[2021-03-29] MEDS ORDERED: PROTONIX 40 MG IV IV SCH (10:00)
[2021-03-29] MEDS: Sodium Chloride 0.9% 1000 ML 1,000 ML IV SCH ×2 (10:19→21:38)
[2021-03-29] MEDS ORDERED: MEDICATION INTERVENTION PO SCH (11:45)
[2021-03-29] MEDS: TYLENOL 325 MG PO PRN (11:55)
[2021-03-29] MEDS: ZOCOR 20MG PO SCH (11:56)
[2021-03-29] MEDS: ceLEXa 20 MG PO SCH (11:57)
[2021-03-29] MEDS: Pepcid 20 MG VIAL IV SCH ×2 (11:58→20:55)
[2021-03-29] MEDS: VITAMIN D PO SCH (11:59)
[2021-03-29] MEDS: Zofran 4 MG/2 ML VIAL IV PRN ×2 (16:28→20:51)
[2021-03-29] MEDS: DESYREL 50 MG PO SCH (20:55)
[2021-03-29] MEDS ORDERED: APREMILAST 30 MG PO SCH (22:00)
[2021-03-30] MEDS: Zosyn 3.375 GM Vial 3.375 GM in Sodium Chloride 100ML MINI-BAG PLUS 100 ML IV SCH ×4 (06:01→23:55)
[2021-03-30] MEDS: Sodium Chloride 0.9% 1000 ML 1,000 ML IV SCH (09:44)
[2021-03-30] MEDS ORDERED: NON-FORMULARY ITEM (Cholecalciferol (Vitamin D3) [Vitamin D3] 50 MCG Capsule) PO SCH (10:00)
[2021-03-30] MEDS ORDERED: Protonix 40MG Tablet PO SCH (10:00)
[2021-03-30] MEDS ORDERED: PROTONIX 40 MG IV IV SCH (10:00)
[2021-03-30] MEDS ORDERED: CITALOPRAM HYDROBROMIDE 10 MG PO SCH (10:00)
[2021-03-30] MEDS ORDERED: NON-FORMULARY ITEM (Omeprazole [Omeprazole] 40 MG Capsule.Dr) PO SCH (10:00)
[2021-03-30] MEDS ORDERED: NON-FORMULARY ITEM (Pravastatin Sodium [Pravastatin Sodium] 80 MG Tablet) PO SCH (10:00)
[2021-03-30] MEDS: ceLEXa 20 MG PO SCH (10:55)
[2021-03-30] MEDS: VITAMIN D PO SCH (10:57)
[2021-03-30] MEDS: ZOCOR 20MG PO SCH (10:57)
[2021-03-30] MEDS: Pepcid 20 MG VIAL IV SCH ×2 (10:58→21:54)
[2021-03-30] MEDS: TYLENOL 325 MG PO PRN (14:56)
--- NOTE | 2021-03-30 19:19 | PCM.NOTE ---
Date and Time: 03/30/211917 Subjective Assessment: doing much better - Review of Systems Constitutional: No Fever, No Chills Eyes: No Symptoms Ears, Nose, & Throat: No Symptoms Respiratory: No Cough, No Short Of Breath Cardiac: No Chest Pain, No Edema, No Syncope Abdominal/Gastrointestinal: No Abdominal Pain, No Nausea, No Vomiting, No Diarrhea Genitourinary Symptoms: No Dysuria Musculoskeletal: No Back Pain, No Neck Pain Skin: No Rash Neurological: No Dizziness, No Focal Weakness, No Sensory Changes Psychological: No Symptoms Endocrine: No Symptoms Hematologic/Lymphatic: No Symptoms Immunological/Allergic: No Symptoms Objective Exam General Appearance: no apparent distress, alert Neurologic Exam: alert, oriented x 3, cooperative, normal mood/affect, nml cerebellar function, sensation nml, No motor deficits Skin Exam: normal color, warm, dry Eye Exam: PERRL, EOMI, eyes nml inspection Ears, Nose, Throat Exam: normal ENT inspection, pharynx normal, moist mucous membranes Neck Exam: normal inspection, non-tender, supple, full range of motion Respiratory Exam: normal breath sounds, lungs clear, No respiratory distress Cardiovascular Exam: regular rate/rhythm, normal heart sounds Gastrointestinal/Abdomen Exam: soft, No tenderness, No mass Extremity Exam: normal inspection, normal range of motion Back Exam: normal inspection, normal range of motion, No CVA tenderness, No vertebral tenderness Pelvic Exam: deferred Rectal Exam: deferred OBJECTIVE DATA Vital Signs: Vital Signs - 24 hr Temp Pulse Resp BP Pulse Ox 03/30/21 16:00 96.2 F 54 L 21 143/68 95 03/30/21 15:23 93 L 03/30/21 12:00 96.3 F 58 L 20 141/69 93 L 03/30/21 08:30 97 03/30/21 07:26 96.3 F 65 19 128/65 96 03/30/21 04:00 98.3 F 61 18 137/69 94 L 03/30/21 00:00 99.1 F 59 L 20 148/76 94 L 03/29/21 19:51 98.1 F 63 18 143/71 92 L Pain Assessment - Last Documented Pain Intensity 0 Pain Scale Used 0-10 Pain Scale Intake and Output: Intake & Output 03/28/21 03/29/21 03/30/21 03/31/21 11:59 11:59 11:59 11:59 Intake Total 1404 2288 540 Output Total 1000 1380 400 Balance 404 908 140 Weight 78.4 kg Assessment/Plan (1) Enteritis Current Visit: Yes Status: Resolved Assessment & Plan: Chief Complaint Diagnosis GASTROENTERITIS, SMALL BOWEL OBSTRUCTION Allergies Allergy/AdvReac Type Severity Reaction Status Date / Time clarithromycin [From Biaxin] Allergy Intermediate rash and Verified 03/28/21 1 4:15 joint pain Vital Signs (Last 24 hours) Temp Pulse Resp BP Pulse Ox 03/30/21 16:00 96.2 F 54 L 21 143/68 95 03/30/21 15:23 93 L 03/30/21 12:00 96.3 F 58 L 20 141/69 93 L 03/30/21 08:30 97 03/30/21 07:26 96.3 F 65 19 128/65 96 03/30/21 04:00 98.3 F 61 18 137/69 94 L 03/30/21 00:00 99.1 F 59 L 20 148/76 94 L 03/29/21 19:51 98.1 F 63 18 143/71 92 L Home Medications Medication Instructions Recorded Confirmed Last Taken Type Apremilast [Otezla] 30 mg PO BID 03/28/21 03/28/21 Unknown History Cholecalciferol (Vitamin D3) 50 mcg PO DAILY 03/28/21 03/28/21 Unknown History [Vitamin D3] Citalopram Hydrobromide 10 mg PO DAILY 03/28/21 03/28/21 Unknown History [Citalopram HBr] Omeprazole 40 mg PO DAILY 03/28/21 03/28/21 Unknown History Pravastatin Sodium 80 mg PO DAILY 03/28/21 03/28/21 Unknown History Trazodone HCl 50 mg [Desyrel 50 50 mg PO HS 03/28/21 03/28/21 Unknown History mg] Current Medications Generic Name Dose Route Start Last Admin Trade Name Freq PRN Reason Stop Dose Admin Acetaminophen 650 mg 03/29/21 11:31 03/30/21 14:56 Acetaminophen 325 Mg Tablet PO 04/28/21 11:30 650 mg Q4H PRN PRN Administration PAIN AND/OR FEVER Cholecalciferol 2,000 unit 03/29/21 13:00 03/30/21 10:57 Cholecalciferol (Vitamin D3) 1000 Unit Tablet PO 04/28/21 12:59 2,000 unit DAILY NIKKI Administration Citalopram Hydrobromide 10 mg 03/29/21 12:00 03/30/21 10:55 Citalopram Hydrobromide 20 Mg Tablet PO 04/28/21 11:59 10 mg DAILY NIKKI Administration Famotidine 20 mg 03/29/21 12:00 03/30/21 10:58 Famotidine 20 Mg/1 Vial IV 04/28/21 11:59 20 mg Q12HT NIKKI Administration Sodium Chloride 1,000 mls @ 100 mls/hr 03/28/21 18:30 03/30/21 09:44 Sodium Chloride 0.9% 1000 Ml IV 04/27/21 18:29 100 mls/hr .Q10H NIKKI Administration Piperacillin Sod/Tazobactam 100 mls @ 200 mls/hr 03/29/21 00:00 03/30/21 18:09 Sod 3.375 gm/ Sodium Chloride IV 04/01/21 00:00 200 mls/hr Q6HT NIKKI Administration Miscellaneous Information 1 each 03/29/21 11:45 Medication Intervention 1 Each Each PO 04/28/21 11:44 .RN TO CHECK ON NIKKI Morphine Sulfate 2 mg 03/28/21 18:30 03/29/21 05:28 Morphine Sulfate 2 Mg/Ml Inj IV 04/02/21 18:29 2 mg Q4H PRN PRN Administration PAIN Ondansetron HCl 4 mg 03/29/21 16:23 03/29/21 20:51 Ondansetron Hcl 4 Mg/2 Ml Vial IV 04/28/21 16:21 4 mg Q4H PRN PRN Administration NAUSEA/VOMITING Pantoprazole Sodium 40 mg 03/30/21 10:00 03/30/21 10:55 Protonix (Pantoprazole) 40 Mg Tablet PO 04/29/21 09:59 40 mg DAILY NIKKI Administration Simvastatin 40 mg 03/29/21 12:00 03/30/21 10:57 Simvastatin 20 Mg Tablet PO 04/28/21 11:59 40 mg DAILY NIKKI Administration Trazodone HCl 50 mg 03/29/21 22:00 03/29/21 20:55 Trazodone Hcl 50 Mg Tablet PO 04/28/21 21:59 50 mg HS NIKKI Administration Discontinued Medications Generic Name Dose Route Start Last Admin Trade Name Carlos PRN Reason Stop Dose Admin Fentanyl Citrate 100 mcg 03/28/21 14:55 03/28/21 14:58 Fentanyl Citrate 100 Mcg/2 Ml* Vial IV 03/28/21 14:56 100 mcg STAT ONE Administration Fentanyl Citrate Confirm 03/28/21 14:57 Fentanyl Citrate 100 Mcg/2 Ml* Vial Administered 03/28/21 14:58 Dose 100 mcg .ROUTE .STK-MED ONE Sodium Chloride 1,000 mls @ 100 mls/hr 03/28/21 14:30 03/28/21 14:58 Sodium Chloride 0.9% 1000 Ml IV 04/27/21 14:29 100 mls/hr .Q10H NIKKI Administration Piperacillin Sod/Tazobactam 100 mls @ 200 mls/hr 03/28/21 16:48 03/28/21 18:19 Sod 3.375 gm/ Sodium Chloride IV 03/28/21 17:17 200 mls/hr STAT ONE Administration Sodium Chloride Confirm 03/28/21 18:12 Sodium Chloride 100ml Mini-Bag Plus Administered 03/28/21 18:13 Dose 100 mls @ ud IV .STK-MED ONE Sodium Chloride Confirm 03/28/21 14:57 Sodium Chloride 0.9% 1000 Ml Administered 03/28/21 14:58 Dose 1,000 mls @ ud .ROUTE .STK-MED ONE Sodium Chloride Confirm 03/28/21 23:07 Sodium Chloride 100ml Mini-Bag Plus Administered 03/28/21 23:08 Dose 100 mls @ ud IV .STK-MED ONE Sodium Chloride Confirm 03/29/21 05:17 Sodium Chloride 100ml Mini-Bag Plus Administered 03/29/21 05:18 Dose 100 mls @ ud IV .STK-MED ONE Ondansetron HCl 4 mg 03/28/21 14:55 03/28/21 14:58 Ondansetron Hcl 4 Mg/2 Ml Vial IV 03/28/21 14:56 4 mg STAT ONE Administration Ondansetron HCl Confirm 03/28/21 14:57 Ondansetron Hcl 4 Mg/2 Ml Vial Administered 03/28/21 14:58 Dose 4 mg .ROUTE .STK-MED ONE Ondansetron HCl 4 mg 03/28/21 18:30 03/29/21 10:25 Ondansetron Hcl 4 Mg/2 Ml Vial IV 04/27/21 18:29 4 mg Q6H PRN PRN Administration NAUSEA/VOMITING Pantoprazole Sodium 40 mg 03/29/21 10:00 03/29/21 05:27 Pantoprazole 40 Mg Vial IV 04/28/21 09:59 40 mg Q24H10 NIKKI Administration Pantoprazole Sodium 40 mg 03/30/21 10:00 Pantoprazole 40 Mg Vial IV 04/29/21 09:59 Q24H10 NIKKI Piperacillin Sod/Tazobactam Sod Confirm 03/28/21 18:12 Piperacillin/Tazobactam Sodium 3.375 Gm Vial Administered 03/28/21 18:13 Dose 3.375 gm IV .STK-MED ONE Piperacillin Sod/Tazobactam Sod Confirm 03/28/21 23:06 Piperacillin/Tazobactam Sodium 3.375 Gm Vial Administered 03/28/21 23:07 Dose 3.375 gm IV .STK-MED ONE Piperacillin Sod/Tazobactam Sod Confirm 03/29/21 05:17 Piperacillin/Tazobactam Sodium 3.375 Gm Vial Administered 03/29/21 05:18 Dose 3.375 gm IV .STK-MED ONE Intake & Output (Last 24 hours) 03/28/21 03/29/21 03/30/21 03/31/21 11:59 11:59 11:59 11:59 Intake Total 1404 2288 540 Output Total 1000 1380 400 Balance 404 908 140 Weight 78.4 kg Orders (Last 24 hours) Category Date Time Status Discontinue NGT ROUTINE Care 03/30/21 15:14 Active Clear Liquid Diet 03/30/21 Dinner Completed House Regular Diet Diet 03/30/21 Dinner Active PANTOPRAZOLE 40 mg Tablet [Protonix 40MG Tablet] Med 03/30/21 10:00 Active 40 mg PO DAILY Pantoprazole 40 mg [Protonix 40 mg IV] Med 03/30/21 10:00 Discontinued 40 mg IV Q24H10 Trazodone HCl 50 mg [Desyrel 50 mg] Med 03/29/21 22:00 Active 50 mg PO HS Oxygen NASAL CANNULA 2 lpm RT 03/30/21 00:25 Active Pulse Oximetry .spot check RT 03/30/21 00:26 Active Patient Care Notes (Last 24 hours) 03/30/21 00:30 Nursing Note by Jonh Anand Pt's O2 sat 85% when woke for midnight vitals, Put pt on 2L NC, O2 sat up to 94%. RT notified. Initialized on 03/30/21 00:30 - END OF NOTE Code(s): K52.9 - NONINFECTIVE GASTROENTERITIS AND COLITIS, UNSPECIFIED (2) Partial small bowel obstruction Current Visit: Yes Status: Resolved Code(s): K56.600 - PARTIAL INTESTINAL OBSTRUCTION, UNSPECIFIED TO CAUSE
[2021-03-30] MEDS: DESYREL 50 MG PO SCH (21:54)
[2021-03-31 04:34] VITALS: BP 130/74; PULSE 78; O2SAT 96
[2021-03-31] MEDS: Zosyn 3.375 GM Vial 3.375 GM in Sodium Chloride 100ML MINI-BAG PLUS 100 ML IV SCH (05:22)
--- NOTE | 2021-03-31 06:28 | PCM.DS ---
Discharge Summary Date of Admission: 03/28/21 18:29 Admitting Physician: JONO LOVE Consults: Consults on Case 03/28/21 18:30 Consult Surgery ROUTINE Primary Care Provider: JONO LOVE Allergies Allergies clarithromycin [From Biaxin] Allergy (Intermediate, Verified 03/28/21 14:15) rash and joint pain Hospital Summary - Hospital Course Hospital Course: Chief Complaint Diagnosis GASTROENTERITIS, SMALL BOWEL OBSTRUCTION Allergies Allergy/AdvReac Type Severity Reaction Status Date / Time clarithromycin [From Biaxin] Allergy Intermediate rash and Verified 03/28/21 14:15 joint pain Vital Signs (Last 24 hours) Temp Pulse Resp BP Pulse Ox 03/31/21 04:34 96.2 F 78 18 130/74 96 03/31/21 00:03 96.2 F 61 20 117/62 95 03/30/21 20:29 96.7 F 60 20 124/69 95 03/30/21 16:00 96.2 F 54 L 21 143/68 95 03/30/21 15:23 93 L 03/30/21 12:00 96.3 F 58 L 20 141/69 93 L 03/30/21 08:30 97 03/30/21 07:26 96.3 F 65 19 128/65 96 Home Medications Medication Instructions Recorded Confirmed Last Taken Type Apremilast [Otezla] 30 mg PO BID 03/28/21 03/28/21 Unknown History Cholecalciferol (Vitamin D3) 50 mcg PO DAILY 03/28/21 03/28/21 Unknown History [Vitamin D3] Citalopram Hydrobromide 10 mg PO DAILY 03/28/21 03/28/21 Unknown History [Citalopram HBr] Omeprazole 40 mg PO DAILY 03/28/21 03/28/21 Unknown History Pravastatin Sodium 80 mg PO DAILY 03/28/21 03/28/21 Unknown History Trazodone HCl 50 mg [Desyrel 50 50 mg PO HS 03/28/21 03/28/21 Unknown History mg] Current Medications Generic Name Dose Route Start Last Admin Trade Name Freq PRN Reason Stop Dose Admin Acetaminophen 650 mg 03/29/21 11:31 03/30/21 14:56 Acetaminophen 325 Mg Tablet PO 04/28/21 11:30 650 mg Q4H PRN PRN Administration PAIN AND/OR FEVER Cholecalciferol 2,000 unit 03/29/21 13:00 03/30/21 10:57 Cholecalciferol (Vitamin D3) 1000 Unit Tablet PO 04/28/21 12:59 2,000 unit DAILY NIKKI Administration Citalopram Hydrobromide 10 mg 03/29/21 12:00 03/30/21 10:55 Citalopram Hydrobromide 20 Mg Tablet PO 04/28/21 11:59 10 mg DAILY NIKKI Administration Famotidine 20 mg 03/29/21 12:00 03/30/21 21:54 Famotidine 20 Mg/1 Vial IV 04/28/21 11:59 20 mg Q12HT NIKKI Administration Sodium Chloride 1,000 mls @ 100 mls/hr 03/28/21 18:30 03/30/21 09:44 Sodium Chloride 0.9% 1000 Ml IV 04/27/21 18:29 100 mls/hr .Q10H NIKKI Administration Piperacillin Sod/Tazobactam 100 mls @ 200 mls/hr 03/29/21 00:00 03/31/21 05:22 Sod 3.375 gm/ Sodium Chloride IV 04/01/21 00:00 200 mls/hr Q6HT NIKKI Administration Miscellaneous Information 1 each 03/29/21 11:45 Medication Intervention 1 Each Each PO 04/28/21 11:44 .RN TO CHECK ON NIKKI Morphine Sulfate 2 mg 03/28/21 18:30 03/29/21 05:28 Morphine Sulfate 2 Mg/Ml Inj IV 04/02/21 18:29 2 mg Q4H PRN PRN Administration PAIN Ondansetron HCl 4 mg 03/29/21 16:23 03/29/21 20:51 Ondansetron Hcl 4 Mg/2 Ml Vial IV 04/28/21 16:21 4 mg Q4H PRN PRN Administration NAUSEA/VOMITING Pantoprazole Sodium 40 mg 03/30/21 10:00 03/30/21 10:55 Protonix (Pantoprazole) 40 Mg Tablet PO 04/29/21 09:59 40 mg DAILY NIKKI Administration Simvastatin 40 mg 03/29/21 12:00 03/30/21 10:57 Simvastatin 20 Mg Tablet PO 04/28/21 11:59 40 mg DAILY NIKKI Administration Trazodone HCl 50 mg 03/29/21 22:00 03/30/21 21:54 Trazodone Hcl 50 Mg Tablet PO 04/28/21 21:59 50 mg HS NIKKI Administration Discontinued Medications Generic Name Dose Route Start Last Admin Trade Name Carlos PRN Reason Stop Dose Admin Fentanyl Citrate 100 mcg 03/28/21 14:55 03/28/21 14:58 Fentanyl Citrate 100 Mcg/2 Ml* Vial IV 03/28/21 14:56 100 mcg STAT ONE Administration Fentanyl Citrate Confirm 03/28/21 14:57 Fentanyl Citrate 100 Mcg/2 Ml* Vial Administered 03/28/21 14:58 Dose 100 mcg .ROUTE .STK-MED ONE Sodium Chloride 1,000 mls @ 100 mls/hr 03/28/21 14:30 03/28/21 14:58 Sodium Chloride 0.9% 1000 Ml IV 04/27/21 14:29 100 mls/hr .Q10H NIKKI Administration Piperacillin Sod/Tazobactam 100 mls @ 200 mls/hr 03/28/21 16:48 03/28/21 18:19 Sod 3.375 gm/ Sodium Chloride IV 03/28/21 17:17 200 mls/hr STAT ONE Administration Sodium Chloride Confirm 03/28/21 18:12 Sodium Chloride 100ml Mini-Bag Plus Administered 03/28/21 18:13 Dose 100 mls @ ud IV .STK-MED ONE Sodium Chloride Confirm 03/28/21 14:57 Sodium Chloride 0.9% 1000 Ml Administered 03/28/21 14:58 Dose 1,000 mls @ ud .ROUTE .STK-MED ONE Sodium Chloride Confirm 03/28/21 23:07 Sodium Chloride 100ml Mini-Bag Plus Administered 03/28/21 23:08 Dose 100 mls @ ud IV .STK-MED ONE Sodium Chloride Confirm 03/29/21 05:17 Sodium Chloride 100ml Mini-Bag Plus Administered 03/29/21 05:18 Dose 100 mls @ ud IV .STK-MED ONE Ondansetron HCl 4 mg 03/28/21 14:55 03/28/21 14:58 Ondansetron Hcl 4 Mg/2 Ml Vial IV 03/28/21 14:56 4 mg STAT ONE Administration Ondansetron HCl Confirm 03/28/21 14:57 Ondansetron Hcl 4 Mg/2 Ml Vial Administered 03/28/21 14:58 Dose 4 mg .ROUTE .STK-MED ONE Ondansetron HCl 4 mg 03/28/21 18:30 03/29/21 10:25 Ondansetron Hcl 4 Mg/2 Ml Vial IV 04/27/21 18:29 4 mg Q6H PRN PRN Administration NAUSEA/VOMITING Pantoprazole Sodium 40 mg 03/29/21 10:00 03/29/21 05:27 Pantoprazole 40 Mg Vial IV 04/28/21 09:59 40 mg Q24H10 NIKKI Administration Pantoprazole Sodium 40 mg 03/30/21 10:00 Pantoprazole 40 Mg Vial IV 04/29/21 09:59 Q24H10 NIKKI Piperacillin Sod/Tazobactam Sod Confirm 03/28/21 18:12 Piperacillin/Tazobactam Sodium 3.375 Gm Vial Administered 03/28/21 18:13 Dose 3.375 gm IV .STK-MED ONE Piperacillin Sod/Tazobactam Sod Confirm 03/28/21 23:06 Piperacillin/Tazobactam Sodium 3.375 Gm Vial Administered 03/28/21 23:07 Dose 3.375 gm IV .STK-MED ONE Piperacillin Sod/Tazobactam Sod Confirm 03/29/21 05:17 Piperacillin/Tazobactam Sodium 3.375 Gm Vial Administered 03/29/21 05:18 Dose 3.375 gm IV .STK-MED ONE Intake & Output (Last 24 hours) 03/28/21 03/29/21 03/30/21 03/31/21 11:59 11:59 11:59 11:59 Intake Total 1404 2288 740 Output Total 1000 1380 400 Balance 404 908 340 Weight 78.4 kg Orders (Last 24 hours) Category Date Time Status Discontinue NGT ROUTINE Care 03/30/21 15:14 Completed Clear Liquid Diet 03/30/21 Dinner Completed House Regular Diet Diet 03/30/21 Dinner Active Discharge Routine Discharge 03/31/21 Ordered PANTOPRAZOLE 40 mg Tablet [Protonix 40MG Tablet] Med 03/30/21 10:00 Active 40 mg PO DAILY Pantoprazole 40 mg [Protonix 40 mg IV] Med 03/30/21 10:00 Discontinued 40 mg IV Q24H10 Patient Care Notes (Last 24 hours) 03/31/21 04:11 Nursing Note by Barbara Sheldon While receiving report on said pt, Lloyd Jeffers R.N. stated that n/g was clamped for several hours and pt diet increased to clear liquid. Then order received to pull N/G and increase pt's diet to reg. Pt ate a cheeseburger, ugandan fries, and ivette slaw and denies any nausea and went to the bathroom shortly after ingesting the meal. N/G was removed on . Initialized on 03/31/21 04:11 - END OF NOTE Patient is feeling much better.Patient is tolerating food. Patient is passing gas. Patient has no abdominal pain. Patient also denies any diarrhea. Will discharge patient home today. - Vitals & Intake/Output Vital Signs: Vital Signs Temperature 96.2 F 03/31/21 04:34 Pulse Rate 78 03/31/21 04:34 Respiratory Rate 18 03/31/21 04:34 Blood Pressure 130/74 03/31/21 04:34 O2 Sat by Pulse Oximetry 96 03/31/21 04:34 Intake & Output: Intake & Output 03/28/21 03/29/21 03/30/21 03/31/21 11:59 11:59 11:59 11:59 Intake Total 1404 2288 740 Output Total 1000 1380 400 Balance 404 908 340 Weight 78.4 kg - Lab Result Diagrams: 03/29/21 04:50 03/29/21 04:50 - Procedures and Test Procedures and Tests throughout Hospitalization: Therapy Orders & Screens 03/30/21 00:25 Oxygen NASAL CANNULA 2 lpm Comment: Diagnosis: GASTROENTERITIS, SMALL BOWEL OBSTRUCTION Discharge Exam General Appearance: no apparent distress, alert Neurologic Exam: alert, oriented x 3, cooperative, normal mood/affect, nml cerebellar function, sensation nml, No motor deficits Eye Exam: PERRL, EOMI, eyes nml inspection Ears, Nose, Throat Exam: normal ENT inspection, pharynx normal, moist mucous membranes Neck Exam: normal inspection, non-tender, supple, full range of motion Respiratory Exam: normal breath sounds, lungs clear, No respiratory distress Cardiovascular Exam: regular rate/rhythm, normal heart sounds Gastrointestinal/Abdomen Exam: soft, No tenderness, No mass Pelvic Exam: deferred Rectal Exam: deferred Back Exam: normal inspection, normal range of motion, No CVA tenderness, No vertebral tenderness Extremity Exam: normal inspection, normal range of motion Skin Exam: normal color, warm, dry Final Diagnosis/Problem List - Final Discharge Diagnosis/Problem (1) Enteritis Current Visit: Yes Status: Resolved Code(s): K52.9 - NONINFECTIVE GASTROENTERITIS AND COLITIS, UNSPECIFIED (2) Partial small bowel obstruction Current Visit: Yes Status: Resolved Code(s): K56.600 - PARTIAL INTESTINAL OBSTRUCTION, UNSPECIFIED TO CAUSE - Discharge Discharge Date: 03/31/21 Disposition: Home, Self-Care Condition: Stable Prescriptions: New Cefuroxime Axetil 500 mg [Ceftin 500 mg] 500 mg PO BID 5 Days #10 tablet Continue Trazodone HCl 50 mg [Desyrel 50 mg] 50 mg PO HS Pravastatin Sodium 80 mg PO DAILY Omeprazole 40 mg PO DAILY Citalopram Hydrobromide [Citalopram HBr] 10 mg PO DAILY Apremilast [Otezla] 30 mg PO BID Cholecalciferol (Vitamin D3) [Vitamin D3] 50 mcg PO DAILY Instructions: Small Bowel Obstruction (DC), Viral Gastroenteritis, Adult (DC) Follow up with: BRI TALLEY [ACTIVE STAFF] - (F/U 1 WEEK OR FIRST AVAILABLE FOR COLONOSCOPY) JONO LOVE MD [Primary Care Provider] - 5 Days Forms: Discharge Instructions, Patient Portal Information
--- NOTE | 2021-04-02 09:51 | CONS ---
CONSULT DATE: 03/30/2021 HISTORY: The patient presented with small bowel obstruction, came in and had nasogastric tube placed yesterday. Initially had a fair amount of material out. She has not had anything out in the last 12 hours. She has passed gas. She was ordered clear liquids and she tolerated this satisfactorily. She has actually had a bowel movement. On physical examination, she has no guarding. No abdominal tenderness. No fullness. She will be given a regular diet. She probably can be discharged later this evening. As she has not had a colonoscopy since age 52, the last one with Dr. Garcia who has since retired. We have suggested that we see her back in the office and we will schedule her for colonoscopy. This was the first attack like this and there had been no previous attacks to date. IMPRESSION: Resolving small bowel obstruction.
== END 2021-03-31 07:05 | disposition home or self-care (01) ==
LOC: ED 14:04 → MED SURG 18:29
PROVIDERS: ADMIT General Practice; ATTEND General Practice
DX: K52.9 Noninfective gastroenteritis and colitis, unspecified (principal); K56.600 Partial intestinal obstruction, unspecified as to cause; E78.00 Pure hypercholesterolemia, unspecified; Z79.899 Other long term (current) drug therapy; Z20.828 Contact with and (suspected) exposure to other viral communicable diseases
CPT/HCPCS: 0241U; 36000; 36415; 74018; 74177; 80053; 81001; 83605; 83690; 85025; 93005; 94760; 96374; 96375; 99285; 43752; G0378; J2270; J2405; J3010; A9270-GY

== ENCOUNTER 2021-05-10 10:41 | Day surgery (SDC) | payer BC ==
--- NOTE | 2021-05-04 11:30 | HP ---
DATE OF SURGERY: 05/10/2021 HISTORY OF PRESENT ILLNESS: The patient is a 60-year-old female who had been seen in the hospital for a small bowel obstruction. The patient was treated conservatively and her obstruction resolved. She is here for postop. She has not had any colonoscopy since age 52. She is reporting some diarrhea for the past three days. PAST MEDICAL HISTORY: Hyperlipidemia, reflux, insomnia, depression. PAST SURGICAL HISTORY: Mastectomy. ALLERGIES: BIAXIN. MEDICATIONS: Pravastatin, omeprazole, trazodone, vitamin D3, citalopram. FAMILY HISTORY: Heart disease, cancer, diabetes. SOCIAL HISTORY: Occasional alcohol. REVIEW OF SYSTEMS: CONSTITUTIONAL: Denies fever or chills. CHEST: Denies shortness of breath. CVS: Denies chest pain. ABDOMEN: Denies abdominal pain, nausea or vomiting. Reports diarrhea. Denies constipation or rectal bleeding. PHYSICAL EXAMINATION: GENERAL: No acute distress. CHEST: Nonlabored. No shortness of breath. CVS: Regular rate and rhythm. ABDOMEN: Soft, nontender. IMPRESSION: Change in bowel habit and follow up for resolved small bowel obstruction. PLAN: Colonoscopy with Dr. Darell Merrill. As dictated by Vanessa Manzano NP.
[2021-05-10] MEDS ORDERED: Lactated Ringers 1,000 ML IV SCH (11:30)
[2021-05-10] MEDS ORDERED: Versed 2 MG/2 ML Injection ONE (12:18)
[2021-05-10] MEDS ORDERED: DIPRIVAN 200 MG/20 ML IV ONE (12:18)
[2021-05-10] MEDS ORDERED: Lactated Ringers 1,000 ML IV ONE (13:28)
[2021-05-10 14:15] VITALS: O2SAT 97
[2021-05-10 14:38] VITALS: BP 130/87; PULSE 68
--- NOTE | 2021-05-10 14:41 | OP ---
SURGERY DATE/TIME: 05/10/2021 1256 PREOPERATIVE DIAGNOSIS: Change in bowel habits. No recent colonoscopy. POSTOPERATIVE DIAGNOSIS: Satisfactory exam. Five year follow up. PROCEDURE: Colonoscopy complete to cecum. SURGEON: Darell Merrill M.D. ANESTHESIA: MAC. COMPLICATIONS: None. CONDITION: Stable. INDICATION: A patient requiring evaluation. DESCRIPTION OF PROCEDURE: Taken to endoscopy. MAC sedation provided. Excellent anesthesia level was present. Anal digital examination satisfactory. Colon satisfactory. Scope advanced. There was some hypertrophy and some diverticulosis of the sigmoid. The scope was passed up over to the cecum. Base of the cecum, ileocecal valve, appendiceal orifice normal. Ascending, hepatic, transverse, splenic normal. Descending normal. Sigmoid slight hypertrophy, slightly twisty, slightly spastic, a few scattered diverticula. Rectum normal. Anus moderate internal hemorrhoids.
[2021-05-10 16:02] LABS: 027 TOX PROD PRESUMPTIVE POSITIVE (NEGATIVE); TOXIGENIC C. DIFF ORG POSITIVE (NEGATIVE)
== END 2021-05-10 14:45 | disposition home or self-care (01) ==
LOC: SDC 10:41
PROVIDERS: ATTEND Surgery
DX: R19.4 Change in bowel habit (principal); K64.8 Other hemorrhoids; K57.30 Diverticulosis of large intestine without perforation or abscess without bleeding
CPT/HCPCS: 87045; 87046; 87328; 87329; 87493; J2250; J2704